=== PATIENT | female | born 1960 | race Caucasian/White ===

== ENCOUNTER 2017-08-09 20:50 | Emergency (ER) | payer SELFPAY ==
[~2017-08-09] VITALS: Ht 160 cm; Wt 89.5 kg
[2017-08-09 21:00] VITALS: Ht 160 cm; Wt 89.5 kg
[2017-08-09] MEDS ORDERED: ZIAC 5-6.25 MG1 TAB PO (21:01)
[2017-08-09] MEDS ORDERED: LEVOXYL75 MCG PO (21:02)
[2017-08-09 22:24] VITALS: BP 126/92
== END 2017-08-09 22:25 | disposition home or self-care (01) ==
LOC: D.ER 20:50
DX: S01.01XA Laceration without foreign body of scalp, initial encounter (principal); W22.8XXA Striking against or struck by other objects, initial encounter; Y93.89 Activity, other specified; Y92.89 Other specified places as the place of occurrence of the external cause